=== PATIENT | male | born 1960 | race African-American/Black ===

== ENCOUNTER 2020-05-24 21:02 | Emergency (ER) | payer SELFPAY ==
[~2020-05-24] VITALS: Ht 188 cm; Wt 75.7 kg
[2020-05-25 00:24] VITALS: BP 138/95
[2020-05-25] MEDS ORDERED: TETANUS-DIPTH-ACEL PERTUSSIS 0.5ML SYR Tdap IM ONE (00:45)
[2020-05-25] MEDS ORDERED: IBUPROFEN 800 MG TAB PO ONE (01:00)
[2020-05-25] MEDS ORDERED: NEOMYCIN-BACITRACIN-POLYM UNITDOSE PKG TOP OINT TOP ONE (01:45)
== END 2020-05-25 01:47 | disposition home or self-care (01) ==
LOC: ER 21:07 → EDBD 21:07 → ER 05-25 01:47
DX: S01.511A Laceration without foreign body of lip, initial encounter (principal); X58.XXXA Exposure to other specified factors, initial encounter; Y93.89 Activity, other specified; Y92.89 Other specified places as the place of occurrence of the external cause; Y99.8 Other external cause status
CPT/HCPCS: 12011; 90471; 90715